=== PATIENT | male | born 1985 | race Caucasian/White ===

== ENCOUNTER 2023-06-11 10:15 | Day surgery (SDC) | payer BC ==
[2023-06-11] MEDS ORDERED: Lidocaine 1% PF 5 ML VIAL ONE (11:10)
[2023-06-11] MEDS ORDERED: Sodium Bicarbonate 2.5 MEQ/5 ML SDV ONE (11:10)
[2023-06-11 12:06] VITALS: BP 127/63; TEMP 98.4
== END 2023-06-11 12:06 | disposition home or self-care (01) ==
LOC: CSHULT 10:15
PROVIDERS: ATTEND Otolaryngology Plastic Surgery within the Head & Neck
PROC: 0GBG3ZX Excision of Left Thyroid Gland Lobe, Percutaneous Approach, Diagnostic (ICD-10-PCS; principal; 2023-06-11)
DX: E04.1 Nontoxic single thyroid nodule (principal)
CPT/HCPCS: 10005; 88173; 88305